=== PATIENT | female | born 1970 | race Hispanic/Latino ===

== ENCOUNTER → 2019-01-04 | Day surgery (SDC) | payer OTHER ==
--- NOTE | 2018-12-28 12:08 | Diagnostic Imaging Report ---
EXAMINATION: CHEST 2 VIEWS INDICATION: Pre-operative COMPARISON: None FINDINGS: LINES/TUBES:None LUNGS:The lungs are well-inflated. No focal consolidation or pulmonary edema. PLEURA:No pleural effusion or pneumothorax. MEDIASTINUM:The cardiomediastinal silhouette appears normal in size and shape. BONES/SOFT TISSUES:No acute osseous injury. ABDOMEN:No free air under the diaphragm. IMPRESSION: No focal pneumonia or pulmonary edema. Signed by: Jae Mckenzie MD on 12/28/2018 12:04 PM
[2018-12-28 12:29] LABS: BASOPHILS % 0.4 % (0.0-1.0); EOSINOPHILS # (AUTO) 0.1 (0.0-0.4); EOSINOPHILS % 0.8 % (0.0-6.0); HEMATOCRIT 42.9 % (34.2-44.1); LYMPHOCYTES # (AUTO) 2.7 (1.0-3.2); LYMPHOCYTES % 38.8 % (18.0-39.1); MEAN CORPUSCULAR HEMOGLOBIN 29.9 pg (28-32); MEAN CORPUSCULAR HGB CONC 32.6 g/dL (31-35); MEAN CORPUSCULAR VOLUME 91.5 fL (81-99); MONOCYTES # (AUTO) 0.4 (0.2-0.8); MONOCYTES % 5.8 % (4.4-11.3); NEUTROPHILS # (AUTO) 3.8 (2.1-6.9); NEUTROPHILS % 54.1 % (38.7-80.0); PLATELET COUNT 304 x10e3/uL (140-360); RED BLOOD COUNT 4.69 x10e6/uL (3.6-5.1); RED CELL DISTRIBUTION WIDTH 12.4 % (11.7-14.4)
[2018-12-28 12:48] LABS: ANION GAP 12.9 mmol/L (8-16); BLOOD UREA NITROGEN 8 mg/dL (7-26); BUN/CREATININE RATIO 12 (6-25); CALCIUM 9.7 mg/dL (8.4-10.2); CARBON DIOXIDE 27 mmol/L (22-29); CHLORIDE 103 mmol/L (98-107); CREATININE, SERUM 0.68 mg/dL (0.57-1.11); EST GLOMERULAR FILTRATION RATE > 60 ML/MIN (60-); GLUCOSE 94 mg/dL (74-118); POTASSIUM 3.9 mmol/L (3.5-5.1); SODIUM 139 mmol/L (136-145)
[~2019-01-04] MED LIST: ACETAMINOPHEN 1000 MG/100 ML IV ONE; BETAMETHASONE DISODIUM PHOS 6 MG/ML VIAL ONE; BUPIVACAINE HCL 0.5% INJ 30 ML VIAL INJ ONE; CARAFATE1 GM/10 ML PO; DEXAMETHASONE SOD PHOS INJ 4 MG/ML VIAL ONE; FENTANYL CITRATE/PF 100MCG/2 ML INJ ONE; LIDOCAINE HCL 1% LOCAL INJ 20 ML VIAL ONE; LIDOCAINE HCL 2% LOCAL INJ 5 ML SDV VIAL INJ ONE; MIDAZOLAM HCL 2 MG/2 ML VIAL ONE; MUPIROCIN 2% OINT 22 GM TUBE ONE; ONDANSETRON HCL INJ 2MG/ML 2ML 2 MG/ML VIAL ONE; PANTOPRAZOLE SO40 MG PO; PROPOFOL IV EMULSION 10 MG/ML 20 ML VIAL ONE; SEVOFLURANE INHAL SOLN 250 ML PEN BTL ONE
--- OUTSIDE RECORDS SUMMARY | 2019-01-04 05:42 | XMS REPORT ---
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 Allergies, Adverse Reactions, Alerts This patient has no known allergies or adverse reactions. Medications This patient has no known medications. Encounters Start Date/Time End Date/Time Encounter Type Admission Type Attending [facility] Care Department Encounter ID 2018-09-17 18:31:00 2018-09-17 18:31:00 Emergency [facility] 7507 2018-08-21 15:43:00 2018-08-21 15:43:00 Emergency E [facility] 9189 Results Test Description Test Time Test Comments Text Results Atomic Results Result Comments CHEST 2 VIEWS 2018-12-28 12:04:00 [place] [address] Patient Name: LUCIA FANG MR #: [id number] : 1970 Age/Sex: 48/F Req #: [id number] Adm Physician: Ordered by: NASH ARECHIGA DP Report #: [id number] Location: OR Room/Bed: Procedure: [id number] DX/CHEST 2 VIEWS Exam Date: 12/28/18 Exam Time: 1130 REPORT STATUS: Signed EXAMINATION: CHEST 2 VIEWS INDICATION: Pre-operative COMPARISON: None FINDINGS: LINES/TUBES:None LUNGS:The lungs are well-inflated. No focal consolidation or pulmonary edema. PLEURA:No pleural effusion or pneumothorax. MEDIASTINUM:The cardiomediastinal silhouette appears normal in size and shape. BONES/SOFT TISSUES:No acute osseous injury. ABDOMEN:No free air under the diaphragm. IMPRESSION: No focal pneumonia or pulmonary edema. Signed by: Kiera Rodriguez MD on 12/28/2018 12:04 PM Dictated By: KIERA RODRIGUEZ MD [id number] Transcribed By: BRODIE JIMÉNEZ on 12/28/181203 COPY TO: NASH ARECHIGA DPM
[2019-01-04] MEDS: CEFAZOLIN SOD 1 GM/NS 50ML 100 ML IV ONE (06:43)
--- NOTE | 2019-01-04 09:21 | Diagnostic Imaging Report ---
EXAMINATION: FOOT RIGHT AP LAT INDICATION: Postoperative COMPARISON: None FINDINGS: AP and lateral portable radiographs of the right foot demonstrate postoperative findings of first metatarsal osteotomy and fixation with a screw and single pin as well as K wire fixation of the second through fourth rays with K wires traversing the interphalangeal and MTP joints. Alignment appears near-anatomic. No unexpected fracture. Overlying splint material obscures fine bony detail. IMPRESSION: Postoperative findings of the right foot as above. Signed by: Jae Mckenzie MD on 01/04/2019 9:17 AM
[2019-01-04 10:25] VITALS: BP 126/87
--- NOTE | 2019-01-04 13:26 | Operative Report ---
DATE OF PROCEDURE: 01/04/2019 SURGEON: Carlin Engle DPM PREOPERATIVE DIAGNOSES: 1. Painful hallux valgus deformity, right foot. 2. Painful contracted hammertoe, 2nd digit, right foot. 3. Painful contracted hammertoe, 3rd digit, right foot. 4. Painful contracted hammertoe, 4th digit, right foot. 5. Painful contracted hammertoe, 5th digit, right foot. POSTOPERATIVE DIAGNOSES: Confirmed. OPERATIVE PROCEDURES: 1. Suleiman bunionectomy, screw fixation, right. 2. Arthroplasty of 2nd with K-wire fixation. 3. Arthroplasty of 3rd with K-wire fixation. 4. Arthroplasty of 4th with K-wire fixation. 5. Arthroplasty of 5th. 6. Intraoperative use of fluoroscopy. 7. Trigger point shot of cortisone. 8. Application of posterior splint. ANESTHESIA: General. HEMOSTASIS: Pneumatic thigh tourniquet at 350 mmHg. PROCEDURE IN DETAIL: The patient was taken into the operating room and placed on the operative table in supine position. Following induction of general anesthesia by the anesthesiologist, Webril wraps were placed on the patient's right thigh, followed by application of right thigh tourniquet. The right lower extremity was then prepped and draped in the usual aseptic manner and the following procedures were then performed: Procedure #1: Suleiman bunionectomy, screw fixation, right foot. Attention was directed to the dorsal medial aspect of the 1st MPJ, where a 6 cm linear incision was performed. Incision was deepened via sharp and blunt dissection being careful to retract any vital structures and ligate any superficial vessels as necessary. Once the level of capsule was reached, longitudinal capsulotomy was then performed exposing the dorsal medial exostosis of the 1st metatarsal head. Via the use of an oscillating saw and rotating bur, dorsal medial exostosis was excised from the operation site in toto. A V-osteotomy was then performed from medial to lateral. Capital fragment was then transpositioned laterally upon adequate surgical and anatomic reduction. Utilizing proper AO technique, a 2.0, 14 mm cortical screw in conjunction with a buried 0.045 K-wire was then used to achieve stability of osteotomy site. All redundant bone medially was excised via the use of an oscillating saw and rotating bur. Procedures #2 through #5: Arthroplasty of 2nd through 5th with K-wire fixation 2nd through 4th. Attention was then directed to the dorsal aspect of the above-mentioned toes overlying the proximal interphalangeal joint, where a 3 cm linear incision was performed. Incision was deepened down to the joint capsule. Transverse capsulotomy was then performed exposing the head of the proximal phalanx. Via the use of an oscillating saw, head of the proximal phalanxes were excised from the operation site in toto. All rough and bony edges were rasped smooth. The 2nd through 4th toes was still noted to be contracted, so a 0.045 K-wire was introduced across the MPJs to achieve proper anatomic reduction. Procedure #6: Intraoperative use of fluoroscopy was then used to make sure proper alignment and fixation was achieved. Closure was then obtained utilizing 3-0 Vicryl, 4-0 Vicryl, and 4-0 nylon for capsule, subcutaneous tissue, and skin respectively. Procedure #7: Trigger point shot of cortisone was then given to the 1st and 4th interspace of the right foot for the inflammation. Then, approximately 15 mL of 0.5% plain Marcaine plus 10 mL of 1% Xylocaine plain were used to achieve local anesthesia of above-mentioned surgical area. Sterile dressing was applied. Upon release of the thigh tourniquet, blood hyperemia was noted immediate to all digits of the patient's right foot. Procedure #8: Application of posterior splint. A properly placed posterior splint was then applied keeping the foot at 90 degrees with respect to the leg to try for any type of postop complications. The patient was then transferred from the OR to recovery room with vital signs stable and neurovascular status intact. No intraoperative complications were encountered. Blood loss from the surgery was minimal. The patient is to remain nonweightbearing with the aid of crutches, keep her foot elevated, and is to apply an ice pack to the ankle joint area. ERICA Juares/CRISTOPHER /[id number]
== END | disposition home or self-care (01) ==
LOC: OR 05:25
PROVIDERS: ATTEND Podiatrist Foot Surgery
DX: M20.11 Hallux valgus (acquired), right foot (principal); M20.41 Other hammer toe(s) (acquired), right foot; K21.9 Gastro-esophageal reflux disease without esophagitis; K29.70 Gastritis, unspecified, without bleeding; Z01.810 Encounter for preprocedural cardiovascular examination; Z01.812 Encounter for preprocedural laboratory examination; Z01.818 Encounter for other preprocedural examination
CPT/HCPCS: 28285 ×4; 28296; 36415; 71046; 73620; 80048; 85025; 93005; C1713 ×2; J0131; J0690; J0720; J1100; J2001 ×2; J2250; J2405; J2704; J3010